=== PATIENT | male | born 1945 | race Caucasian/White ===

== ENCOUNTER → 2016-12-28 | Outpatient (CLI) | payer MEDICARE, BC ==
[2016-03-15 09:20] VITALS: BP 145/82
[~2016-12-28] MED LIST: ATENOLOL50 MG PO; CARBIDOPA/LEVODOPA; DICLOFENAC SOD75 MG PO; FLOMAX 0.40.4 MG/CAP PO; GABAPENTIN100 M1 PO; GOOD NEIGHBOR325 MG PO; HCTZ 25MG25 MG PO; LIPITOR 10MG10 MG PO; LOW DOSE ASPIRI81 MG PO; MIRAPEX0.125 M1 PO; NEURONTIN300 M1 PO; NORVASC 10MG10 MG PO; SINEMET 10-1001 TAB PO; TRIAMCINOLONE0.1% TP; ULTRAM50 M1 PO; VITAMIN D31000 IU PO
== END ==
LOC: RAD 15:25
DX: M25.531 Pain in right wrist (principal)

== ENCOUNTER 2017-01-06 08:04 | Emergency (ER) | payer MEDICARE, BC ==
[~2017-01-06] VITALS: Ht 177.8 cm; Wt 86.4 kg
[2017-01-06 15:14] VITALS: BP 99/57
== END 2017-01-06 15:21 | disposition short-term general hospital (02) ==
LOC: ED 08:04
DX: K25.5 Chronic or unspecified gastric ulcer with perforation (principal); K59.00 Constipation, unspecified; E87.1 Hypo-osmolality and hyponatremia; I10 Essential (primary) hypertension; G62.0 Drug-induced polyneuropathy; E86.9 Volume depletion, unspecified; G62.9 Polyneuropathy, unspecified
CPT/HCPCS: J1885; J2543; J7030; Q9967

== ENCOUNTER → 2017-01-24 | Outpatient (CLI) | payer MEDICARE, BC ==
[2017-01-06 15:14] VITALS: BP 99/57
== END ==
LOC: LAB 08:02
DX: D72.829 Elevated white blood cell count, unspecified (principal)

== ENCOUNTER → 2017-10-06 | Outpatient (CLI) | payer MEDICARE, BC ==
[2017-10-06 12:39] LABS: HEMATOCRIT 42.9 % (42.0-52.0); HEMOGLOBIN 14.4 g/dL (13.5-18.0); MEAN PLATELET VOLUME 9.2 fl (7.4-10.4); RED BLOOD COUNT 4.55 M/mm3 (4.20-5.60); RED CELL DISTRIBUTION WIDTH 14.9 % (11.5-14.5); WHITE BLOOD COUNT 13.5 K/mm3 (4.8-10.8)
[2017-10-06 13:06] LABS: ALBUMIN 3.5 g/dL (3.5-5.0)
== END ==
LOC: LAB 11:32
PROVIDERS: Internal Medicine Rheumatology
DX: Z79.899 Other long term (current) drug therapy (principal)

== ENCOUNTER → 2017-11-03 | Outpatient (CLI) | payer MEDICARE, BC | LOC: LAB 09:13 | PROVIDERS: Internal Medicine Rheumatology | DX: Z79.899 Other long term (current) drug therapy (principal) ==

== ENCOUNTER → 2019-09-20 | Outpatient (CLI) | payer MEDICARE, BC ==
[2019-09-20 10:27] LABS: EOS # 0.1 (0.04-0.40); EOS % 0.5 % (0.0-4.0); HEMATOCRIT 44.6 % (42.0-52.0); HEMOGLOBIN 14.9 g/dL (13.5-18.0); LYMPH# 1.8 (1.50-4.00); MEAN CELL VOLUME 97 fl (78-100); MEAN CORPUSCULAR HEMOGLOBIN 32 pg (27-31); MEAN CORPUSCULAR HGB CONC 33 g/dL (33-37); MEAN PLATELET VOLUME 8.8 fl (7.4-10.4); MONO # 0.6 (0.20-0.80); PLATELET COUNT 463 K/mm3 (130-400); RED BLOOD COUNT 4.62 M/mm3 (4.20-5.60); RED CELL DISTRIBUTION WIDTH 13.1 % (11.5-14.5); WHITE BLOOD COUNT 10.5 K/mm3 (4.8-10.8)
[2019-09-20 10:39] LABS: ALBUMIN 3.9 g/dL (3.4-4.8); POTASSIUM 4.4 mmol/L (3.5-5.1)
[2019-09-20 10:40] LABS: CALCIUM 9.2 mg/dL (8.3-10.5)
[2019-09-20 10:42] LABS: TOTAL PROTEIN 6.8 g/dL (6.2-8.1)
[2019-09-20 10:43] LABS: TOTAL BILIRUBIN 0.5 mg/dL (0.2-1.2)
== END ==
LOC: LAB 10:04
PROVIDERS: Family Medicine
DX: Z00.00 Encounter for general adult medical examination without abnormal findings (principal); I10 Essential (primary) hypertension; E55.9 Vitamin D deficiency, unspecified

== ENCOUNTER → 2020-04-10 | Outpatient (CLI) | payer MEDICARE, BC ==
[2020-04-10 17:05] LABS: URINE APPEARANCE CLEAR; URINE COLOR YELLOW
[2020-04-10 17:06] LABS: URINE BILIRUBIN NEGATIVE (NEGATIVE); URINE BLOOD NEGATIVE (NEGATIVE); URINE GLUCOSE NEGATIVE (NEGATIVE); URINE KETONE NEGATIVE (NEGATIVE); URINE LEUKOCYTE ESTERASE NEGATIVE (NEGATIVE); URINE MUCUS PRESENT (NOT PRESENT); URINE NITRATE NEGATIVE (NEGATIVE); URINE PROTEIN(semi-quant) 1+ mg/dL (NEGATIVE); URINE UROBILINOGEN NORMAL (NORMAL); URINE WBC 0-1 /hpf (0-3)
[2020-04-10 17:18] LABS: EOS # 0.2 (0.04-0.40); EOS % 1.6 % (0.0-4.0); HEMOGLOBIN 14.4 g/dL (13.5-18.0); LYMPH# 3.3 (1.50-4.00); MEAN CELL VOLUME 96 fl (78-100); MEAN CORPUSCULAR HEMOGLOBIN 33 pg (27-31); MEAN CORPUSCULAR HGB CONC 34 g/dL (33-37); MEAN PLATELET VOLUME 8.9 fl (7.4-10.4); MONO # 1.1 (0.20-0.80); NEU # 5.8 (1.40-6.50); PLATELET COUNT 401 K/mm3 (130-400); RED BLOOD COUNT 4.36 M/mm3 (4.20-5.60); RED CELL DISTRIBUTION WIDTH 12.6 % (11.5-14.5); WHITE BLOOD COUNT 10.4 K/mm3 (4.8-10.8)
[2020-04-10 17:28] LABS: ALBUMIN 3.9 g/dL (3.4-4.8)
[2020-04-10 17:29] LABS: POTASSIUM 4.5 mmol/L (3.5-5.1)
[2020-04-10 17:30] LABS: CALCIUM 9.2 mg/dL (8.3-10.5)
[2020-04-10 17:31] LABS: TOTAL PROTEIN 6.6 g/dL (6.2-8.1)
[2020-04-10 17:33] LABS: TOTAL BILIRUBIN 0.5 mg/dL (0.2-1.2)
[2020-04-10 17:37] LABS: MAGNESIUM 1.73 mg/dL (1.60-2.60)
== END ==
LOC: AMSURD 16:39
PROVIDERS: Internal Medicine
DX: Z01.818 Encounter for other preprocedural examination (principal); H25.9 Unspecified age-related cataract

== ENCOUNTER → 2020-06-22 | Outpatient (CLI) | payer MEDICARE, BC ==
[2020-06-22 15:37] LABS: EOS # 0.2 (0.04-0.40); EOS % 1.4 % (0.0-4.0); HEMATOCRIT 42.2 % (42.0-52.0); HEMOGLOBIN 14.7 g/dL (13.5-18.0); LYMPH# 3.6 (1.50-4.00); MEAN CELL VOLUME 94 fl (78-100); MEAN CORPUSCULAR HEMOGLOBIN 33 pg (27-31); MEAN CORPUSCULAR HGB CONC 35 g/dL (33-37); MONO # 1.8 (0.20-0.80); NEU # 11.2 (1.40-6.50); PLATELET COUNT 367 K/mm3 (130-400); RED BLOOD COUNT 4.47 M/mm3 (4.20-5.60)
[2020-06-22 15:51] LABS: TOTAL BILIRUBIN 0.4 mg/dL (0.2-1.2)
[2020-06-22 16:16] LABS: ALBUMIN 3.5 g/dL (3.4-4.8); CALCIUM 8.3 mg/dL (8.3-10.5); POTASSIUM 3.8 mmol/L (3.5-5.1)
[2020-06-22 16:17] LABS: TOTAL PROTEIN 5.9 g/dL (6.2-8.1)
[2020-06-25 06:32] LABS: ALTERNARIA TENUIS CNT 0.16 kU/L (()); BERMUDA GRASS ALLERGEN COUNT <0.10 kU/L (()); BOX ELDER-MAPLE ALLERGEN COUNT <0.10 kU/L (()); CAT DANDER ALLERGEN COUNT <0.10 kU/L (()); CLADOSPORIUM ALLERGEN COUNT 0.17 kU/L (()); COCKROACH ALLERGEN COUNT <0.10 kU/L (()); COTTONWOOD TREE ALLERGEN COUNT <0.10 kU/L (()); DOG DANDER ALLERGEN COUNT <0.10 kU/L (()); DUST MITES (D.F.) ALLERG COUNT 0.65 kU/L (()); DUST MITES (D.P.) ALLERG COUNT 1.35 kU/L (()); ELM TREE ALLERGEN COUNT <0.10 kU/L (()); FIREBUSH ALLERGEN COUNT <0.10 kU/L (()); OAK ALLERGEN COUNT <0.10 kU/L (()); ROUGH MARSH ELDER ALLERG COUNT <0.10 kU/L (()); RUSSIAN THISTLE ALLERGEN COUNT <0.10 kU/L (()); SHORT RAGWEED ALLERGEN COUNT <0.10 kU/L (())
[2020-06-30 15:35] LABS: ALLERGEN CLASS INTERP GUIDE AMS; EGG WHITE ALLERGEN CLASS AMS; EGG WHITE ALLERGEN COUNT AMS; MILK ALLERGEN CLASS AMS; MILK ALLERGEN COUNT AMS; OAT ALLERGEN CLASS AMS; OAT ALLERGEN COUNT AMS; SOYBEAN ALLERGEN CLASS AMS; SOYBEAN ALLERGEN COUNT AMS; WHEAT ALLERGEN CLASS AMS; WHEAT ALLERGEN COUNT AMS
== END ==
LOC: LAB 15:05
PROVIDERS: Family Medicine
DX: L28.2 Other prurigo (principal)

== ENCOUNTER → 2020-12-11 | Outpatient (CLI) | payer MEDICARE, BC ==
[2020-12-11 09:06] LABS: BASO # 0.03 (0.02-0.10); EOS # 0.37 (0.04-0.40); EOS % 4.5 % (0.0-4.0); LYMPH# 3.24 (1.50-4.00); MEAN CELL VOLUME 92 fl (78-100); MEAN CORPUSCULAR HEMOGLOBIN 32 pg (27-31); MEAN CORPUSCULAR HGB CONC 35 g/dL (33-37); MEAN PLATELET VOLUME 8.8 fl (7.4-10.4); MONO # 1.11 (0.20-0.80); NEU # 3.49 (1.40-6.50); PLATELET COUNT 318 K/mm3 (130-400); RED BLOOD COUNT 4.35 M/mm3 (4.20-5.60); RED CELL DISTRIBUTION WIDTH 12.6 % (11.5-14.5); WHITE BLOOD COUNT 8.3 K/mm3 (4.8-10.8)
[2020-12-11 09:13] LABS: ALBUMIN 3.7 g/dL (3.4-4.8); POTASSIUM 4.6 mmol/L (3.5-5.1)
[2020-12-11 09:14] LABS: CALCIUM 8.6 mg/dL (8.3-10.5)
[2020-12-11 09:16] LABS: TOTAL PROTEIN 6.6 g/dL (6.2-8.1)
[2020-12-11 09:18] LABS: TOTAL BILIRUBIN 0.7 mg/dL (0.2-1.2)
== END ==
LOC: LAB 08:39
PROVIDERS: Family Medicine
DX: Z00.00 Encounter for general adult medical examination without abnormal findings (principal); E78.5 Hyperlipidemia, unspecified

== ENCOUNTER → 2020-12-17 | Outpatient (CLI) | payer MEDICARE, BC | LOC: RAD 16:41 | DX: M48.061 Spinal stenosis, lumbar region without neurogenic claudication (principal); M51.36 Other intervertebral disc degeneration, lumbar region; M51.25 Other intervertebral disc displacement, thoracolumbar region ==

== ENCOUNTER 2022-01-02 19:38 | Emergency (ER) | payer MEDICARE, BC ==
[2022-01-02] MEDS ORDERED: GOOD NEIGHBOR500 M2 PO (20:08)
[2022-01-02] MEDS ORDERED: FOSAMAX 70MG TA70 MG PO (20:10)
[2022-01-02] MEDS ORDERED: CALCIUM 600 MG-1 TAB PO (20:11)
[2022-01-02] MEDS ORDERED: SINEMET 25-1001 EACH PO (20:12)
[2022-01-02] MEDS ORDERED: VITAMIN D310 MC1 PO (20:13)
[2022-01-02] MEDS ORDERED: FERROUS SULFATE65 MG PO (20:15)
[2022-01-02] MEDS ORDERED: NEURONTIN300 MG/CAP PO (20:15)
[2022-01-02] MEDS ORDERED: NAPROSYN500 M1 PO (20:16)
[2022-01-02] MEDS ORDERED: PROTONIX TR40 M1 PO (20:17)
[2022-01-02] MEDS ORDERED: TRAMADOL 50 MG TAB PO (20:18)
[2022-01-02 21:18] LABS: BASO # 0.02 K/mm3 (0.02-0.10); EOS # 0.17 K/mm3 (0.04-0.40); EOS % 1.4 % (0.0-4.0); HEMATOCRIT 36.7 % (42.0-52.0); HEMOGLOBIN 12.5 g/dL (13.5-18.0); LYMPH# 2.64 K/mm3 (1.50-4.00); MEAN CELL VOLUME 98 fl (78-100); MEAN CORPUSCULAR HEMOGLOBIN 34 pg (27-31); MEAN CORPUSCULAR HGB CONC 34 g/dL (33-37); MEAN PLATELET VOLUME 9.5 fl (7.4-10.4); MONO # 0.87 K/mm3 (0.20-0.80); NEU # 8.47 K/mm3 (1.40-6.50); PLATELET COUNT 224 K/mm3 (130-400); RED BLOOD COUNT 3.73 M/mm3 (4.20-5.60); RED CELL DISTRIBUTION WIDTH 13.2 % (11.5-14.5); WHITE BLOOD COUNT 12.2 K/mm3 (4.8-10.8)
[2022-01-02 21:30] LABS: ALBUMIN 3.4 g/dL (3.4-4.8); POTASSIUM 4.2 mmol/L (3.5-5.1)
[2022-01-02 21:31] LABS: CALCIUM 9.2 mg/dL (8.3-10.5)
[2022-01-02 21:34] LABS: TOTAL BILIRUBIN 0.3 mg/dL (0.2-1.2)
[2022-01-02 23:20] VITALS: BP 135/74
== END 2022-01-02 23:22 | disposition home or self-care (01) ==
LOC: ED 19:38
PROVIDERS: Family Medicine
DX: U07.1 COVID-19 (principal)

== ENCOUNTER → 2022-01-05 | Outpatient (CLI) | payer MEDICARE, BC ==
[~2022-01-05] VITALS: Ht 157.5 cm; Wt 75.0 kg
[~2022-01-05] MED LIST changes: +CALCIUM 600 MG-1 TAB PO; +FERROUS SULFATE65 MG PO; +FOSAMAX 70MG TA70 MG PO; +GOOD NEIGHBOR500 M2 PO; +NAPROSYN500 M1 PO; +NEURONTIN300 MG/CAP PO; +PROTONIX TR40 M1 PO; +SINEMET 25-1001 EACH PO; +TRAMADOL 50 MG TAB PO; +VITAMIN D310 MC1 PO
[2022-01-05 09:14] VITALS: BP 136/69
[2022-01-05 09:15] VITALS: BP 139/69
[2022-01-05 09:30] VITALS: BP 108/55
[2022-01-05 09:45] VITALS: BP 107/56
[2022-01-05 10:00] VITALS: BP 121/59
[2022-01-05 10:15] VITALS: BP 123/59
== END ==
LOC: AMSURD 01-04 15:01
DX: U07.1 COVID-19 (principal); N18.9 Chronic kidney disease, unspecified

== ENCOUNTER → 2022-01-26 | Outpatient (CLI) | payer MEDICARE, BC ==
[2022-01-26 10:33] LABS: HEMOGLOBIN 11.9 g/dL (13.5-18.0); MEAN CELL VOLUME 96 fl (78-100); MEAN CORPUSCULAR HEMOGLOBIN 33 pg (27-31); MEAN CORPUSCULAR HGB CONC 34 g/dL (33-37); MEAN PLATELET VOLUME 9.7 fl (7.4-10.4); PLATELET COUNT 296 K/mm3 (130-400); RED BLOOD COUNT 3.63 M/mm3 (4.20-5.60); RED CELL DISTRIBUTION WIDTH 13.5 % (11.5-14.5)
[2022-01-26 10:37] LABS: WHITE BLOOD COUNT 22.2 K/mm3 (4.8-10.8)
[2022-01-26 10:39] LABS: ALBUMIN 3.2 g/dL (3.4-4.8); POTASSIUM 3.9 mmol/L (3.5-5.1); SODIUM 133 mmol/L (136-145)
[2022-01-26 10:40] LABS: PROTHROMBIN TIME 10.9 SECONDS (9.0-12.0)
[2022-01-26 10:41] LABS: GLUCOSE 116 mg/dL (75-110); TOTAL PROTEIN 6.4 g/dL (6.2-8.1)
[2022-01-26 10:42] LABS: CARBON DIOXIDE 25 mmol/L (23-31)
[2022-01-26 10:47] LABS: AST-SGOT 13 U/L (5-34)
[2022-01-26 10:51] LABS: ALT/SGPT < 6 U/L (0-55)
[2022-01-26 10:57] LABS: URINE APPEARANCE HAZY; URINE COLOR DARK YELLOW; URINE PROTEIN(semi-quant) TRACE (NEGATIVE)
[2022-01-26 10:58] LABS: URINE BILIRUBIN NEGATIVE (NEGATIVE); URINE BLOOD NEGATIVE (NEGATIVE); URINE GLUCOSE NEGATIVE (NEGATIVE); URINE KETONE NEGATIVE (NEGATIVE); URINE LEUKOCYTE ESTERASE NEGATIVE (NEGATIVE); URINE NITRATE NEGATIVE (NEGATIVE); URINE UROBILINOGEN 12 mg/dL (NORMAL); URINE WBC 0-1 /hpf (0-3)
[2022-01-26 10:59] LABS: URINE MUCUS PRESENT (NOT PRESENT)
[2022-01-26 12:23] LABS: NEUTROPHILS 61 % (42-75)
[2022-01-26 12:24] LABS: LYMPHOCYTE 5 % (20-51); MONOCYTE 5 % (3-10)
== END ==
LOC: LAB 09:57
PROVIDERS: Family Medicine
DX: Z01.810 Encounter for preprocedural cardiovascular examination (principal); Z01.812 Encounter for preprocedural laboratory examination

== ENCOUNTER 2023-03-07 07:49 | Outpatient (RCR) | payer MEDICARE, BC ==
[~2023-03-07 07:49] MED LIST changes: +FLOMAX0.4 MG PO
== END 2023-03-09 | disposition home or self-care (01) ==
LOC: PT
DX: Z96.641 Presence of right artificial hip joint (principal)

== ENCOUNTER → 2023-04-12 | Outpatient (CLI) | payer MEDICARE, BC | LOC: LAB 09:44 | DX: G20.A1 Parkinson's disease without dyskinesia, without mention of fluctuations (principal); E55.9 Vitamin D deficiency, unspecified ==

== ENCOUNTER 2023-05-10 08:00 | Outpatient (RCR) | payer MEDICARE, BC | END 2023-06-08 | disposition home or self-care (01) | LOC: PT | DX: Z96.641 Presence of right artificial hip joint (principal) ==

== ENCOUNTER 2023-08-02 19:57 | Emergency (ER) | payer MEDICARE, BC ==
[~2023-08-02] VITALS: Ht 170.2 cm; Wt 72.7 kg
[2023-08-02 20:42] LABS: BASO # 0.04 K/mm3 (0.02-0.10); EOS # 0.16 K/mm3 (0.04-0.40); EOS % 1.7 % (0.0-4.0); HEMATOCRIT 38.4 % (42.0-52.0); HEMOGLOBIN 13.1 g/dL (13.5-18.0); LYMPH# 2.91 K/mm3 (1.50-4.00); MEAN CELL VOLUME 94 fl (78-100); MEAN CORPUSCULAR HEMOGLOBIN 32 pg (27-31); MEAN CORPUSCULAR HGB CONC 34 g/dL (33-37); MONO # 1.04 K/mm3 (0.20-0.80); PLATELET COUNT 317 K/mm3 (130-400); RED CELL DISTRIBUTION WIDTH 14.7 % (11.5-14.5); WHITE BLOOD COUNT 9.2 K/mm3 (4.8-10.8)
[2023-08-02 20:49] LABS: ALBUMIN 3.5 g/dL (3.4-4.8); SODIUM 129 mmol/L (136-145)
[2023-08-02 20:51] LABS: GLUCOSE 100 mg/dL (75-110)
[2023-08-02 20:52] LABS: TOTAL PROTEIN 5.5 g/dL (6.2-8.1)
[2023-08-02 20:53] LABS: CARBON DIOXIDE 24 mmol/L (23-31); TOTAL BILIRUBIN 0.3 mg/dL (0.2-1.2)
[2023-08-02 20:57] LABS: AST-SGOT 11 U/L (5-34)
[2023-08-02 20:58] LABS: ALT/SGPT 11 U/L (0-55)
[2023-08-02 21:04] LABS: TROPONIN-I < 0.030 ng/mL (0.00-0.033)
[2023-08-02 21:17] LABS: PROTHROMBIN TIME 9.9 SECONDS (9.0-12.0)
[2023-08-02 23:05] LABS: CALCIUM 8.7 mg/dL (8.3-10.5)
[2023-08-02 23:55] VITALS: BP 144/74
== END 2023-08-02 23:55 | disposition home or self-care (01) ==
LOC: ED 19:57
PROVIDERS: Physician Assistant
DX: R41.82 Altered mental status, unspecified (principal); E87.1 Hypo-osmolality and hyponatremia
CPT/HCPCS: J7030

== ENCOUNTER → 2023-08-08 | Outpatient (CLI) | payer MEDICARE, BC ==
[2023-08-08 11:55] LABS: BASO # 0.04 K/mm3 (0.02-0.10); EOS # 0.18 K/mm3 (0.04-0.40); EOS % 2.1 % (0.0-4.0); HEMATOCRIT 39.8 % (42.0-52.0); HEMOGLOBIN 13.4 g/dL (13.5-18.0); LYMPH# 2.48 K/mm3 (1.50-4.00); MEAN CELL VOLUME 95 fl (78-100); MEAN CORPUSCULAR HEMOGLOBIN 32 pg (27-31); MEAN CORPUSCULAR HGB CONC 34 g/dL (33-37); MEAN PLATELET VOLUME 9.1 fl (7.4-10.4); NEU # 4.98 K/mm3 (1.40-6.50); PLATELET COUNT 335 K/mm3 (130-400); RED BLOOD COUNT 4.21 M/mm3 (4.20-5.60); RED CELL DISTRIBUTION WIDTH 14.4 % (11.5-14.5); WHITE BLOOD COUNT 8.5 K/mm3 (4.8-10.8)
[2023-08-08 12:02] LABS: ALBUMIN 3.6 g/dL (3.4-4.8)
[2023-08-08 12:04] LABS: CALCIUM 9.1 mg/dL (8.3-10.5)
[2023-08-08 12:05] LABS: TOTAL PROTEIN 6.3 g/dL (6.2-8.1)
[2023-08-08 12:07] LABS: TOTAL BILIRUBIN 0.57 mg/dL (0.2-1.2)
[2023-08-08 22:08] LABS: FOLATE (FOLIC ACID) 9.9 ng/mL (2.0-20.0)
== END ==
LOC: LAB 11:38
PROVIDERS: Nurse Practitioner
DX: E87.1 Hypo-osmolality and hyponatremia (principal); E61.1 Iron deficiency; E55.9 Vitamin D deficiency, unspecified; E53.8 Deficiency of other specified B group vitamins

== ENCOUNTER → 2023-08-17 | Outpatient (CLI) | payer MEDICARE, BC | LOC: RAD 15:15 | DX: G45.9 Transient cerebral ischemic attack, unspecified (principal); I67.82 Cerebral ischemia ==

== ENCOUNTER → 2023-08-26 | Outpatient (CLI) | payer MEDICARE, BC | LOC: LAB 07:12 → RAD 07:12 → VAS 07:12 | DX: I08.0 Rheumatic disorders of both mitral and aortic valves (principal); R60.0 Localized edema ==

== ENCOUNTER → 2023-09-27 | Outpatient (CLI) | payer MEDICARE, BC ==
[2023-09-27 10:06] LABS: ALBUMIN 3.5 g/dL (3.4-4.8)
[2023-09-27 10:07] LABS: CALCIUM 8.8 mg/dL (8.3-10.5)
[2023-09-27 10:09] LABS: TOTAL PROTEIN 6.1 g/dL (6.2-8.1)
[2023-09-27 10:10] LABS: TOTAL BILIRUBIN 0.4 mg/dL (0.2-1.2)
== END ==
LOC: LAB 09:51
PROVIDERS: Nurse Practitioner
DX: E87.1 Hypo-osmolality and hyponatremia (principal)

== ENCOUNTER → 2023-10-03 | Outpatient (CLI) | payer MEDICARE, BC | LOC: RAD 08:09 | DX: M47.816 Spondylosis without myelopathy or radiculopathy, lumbar region (principal); M51.36 Other intervertebral disc degeneration, lumbar region; M48.061 Spinal stenosis, lumbar region without neurogenic claudication; M41.86 Other forms of scoliosis, lumbar region ==

== ENCOUNTER → 2023-11-29 | Outpatient (CLI) | payer MEDICARE, BC ==
[2024-01-21 12:30] LABS: BASO # 0.02 K/mm3 (0.02-0.10); EOS # 0.34 K/mm3 (0.04-0.40); EOS % 4.4 % (0.0-4.0); HEMATOCRIT 39.8 % (42.0-52.0); LYMPH# 2.39 K/mm3 (1.50-4.00); MEAN CELL VOLUME 95 fl (78-100); MEAN CORPUSCULAR HEMOGLOBIN 31 pg (27-31); MEAN CORPUSCULAR HGB CONC 33 g/dL (33-37); MEAN PLATELET VOLUME 9.4 fl (7.4-10.4); MONO # 0.54 K/mm3 (0.20-0.80); NEU # 4.41 K/mm3 (1.40-6.50); PLATELET COUNT 284 K/mm3 (130-400); RED BLOOD COUNT 4.17 M/mm3 (4.20-5.60); RED CELL DISTRIBUTION WIDTH 13.5 % (11.5-14.5); WHITE BLOOD COUNT 7.7 K/mm3 (4.8-10.8)
== END ==
LOC: LAB 08:00
PROVIDERS: Internal Medicine Interventional Cardiology
DX: R06.02 Shortness of breath (principal)

== ENCOUNTER → 2024-05-24 | Outpatient (CLI) | payer MEDICARE, BC ==
[2024-05-24 08:30] LABS: BASO # 0.04 K/mm3 (0.02-0.10); EOS # 0.28 K/mm3 (0.04-0.40); EOS % 5.6 % (0.0-4.0); HEMOGLOBIN 12.2 g/dL (13.5-18.0); LYMPH# 1.71 K/mm3 (1.50-4.00); MEAN CELL VOLUME 90 fl (78-100); MEAN CORPUSCULAR HEMOGLOBIN 32 pg (27-31); MEAN CORPUSCULAR HGB CONC 36 g/dL (33-37); MEAN PLATELET VOLUME 8.8 fl (7.4-10.4); MONO # 0.49 K/mm3 (0.20-0.80); NEU # 2.51 K/mm3 (1.40-6.50); PLATELET COUNT 254 K/mm3 (130-400); RED BLOOD COUNT 3.76 M/mm3 (4.20-5.60); RED CELL DISTRIBUTION WIDTH 14.2 % (11.5-14.5)
[2024-05-24 09:12] LABS: ALBUMIN 3.7 g/dL (3.4-4.8)
[2024-05-24 09:16] LABS: TOTAL BILIRUBIN 0.6 mg/dL (0.2-1.2)
== END ==
LOC: LAB 08:08
PROVIDERS: Nurse Practitioner
DX: Z00.00 Encounter for general adult medical examination without abnormal findings (principal); Z13.220 Encounter for screening for lipoid disorders; D50.9 Iron deficiency anemia, unspecified

== ENCOUNTER → 2024-06-03 | Outpatient (CLI) | payer MEDICARE, BC ==
[2024-06-03 12:03] LABS: ALBUMIN 3.7 g/dL (3.4-4.8)
[2024-06-03 12:05] LABS: CALCIUM 9.2 mg/dL (8.3-10.5)
[2024-06-03 12:06] LABS: TOTAL PROTEIN 5.9 g/dL (6.2-8.1)
[2024-06-03 12:08] LABS: TOTAL BILIRUBIN 0.6 mg/dL (0.2-1.2)
== END ==
LOC: LAB 11:40
PROVIDERS: Nurse Practitioner
DX: E87.1 Hypo-osmolality and hyponatremia (principal)

== ENCOUNTER → 2024-06-07 | Outpatient (CLI) | payer MEDICARE, BC | LOC: LAB 10:16 | DX: E87.1 Hypo-osmolality and hyponatremia (principal) ==